=== PATIENT | female | born 1975 | race Caucasian/White ===

== ENCOUNTER 2021-10-10 07:43 | Outpatient (CLI) | payer SELFPAY ==
--- NOTE | 2021-10-10 07:51 | MM_ITS ---
WS: [id number] BILATERAL SCREENING TOMOSYNTHESIS DIGITAL MAMMOGRAM WITH CAD HISTORY: SCREENING COMPARISON: 10/13/2017 and 07/30/2013 Bilateral CC and MLO views submitted. Computer aided detection analyzed. Breast composition: The breasts are extremely dense, which lowers the sensitivity of mammography. No suspicious masses, microcalcifications or architectural distortion. MM/[place] [id number] IMPRESSION: BI-RADS: 1-Negative FOLLOW UP: 1 Year Follow-up
== END 2021-10-10 07:44 | disposition home or self-care (01) ==
PROVIDERS: Visit Provider Nurse Practitioner Family
DX: Z12.31 Encounter for screening mammogram for malignant neoplasm of breast (principal)
CPT/HCPCS: 77063; 77067

== ENCOUNTER → 2022-04-23 15:59 | Outpatient (BNVA) | payer OTHER, SELFPAY | PROVIDERS: PCP Family Medicine; Visit Provider Family Medicine | DX: R53.83 Other fatigue (principal); N39.0 Urinary tract infection, site not specified | CPT/HCPCS: 80053; 81000; 82306; 84443; 85025 ==

== ENCOUNTER 2022-07-05 06:07 | Outpatient (CLI) | payer OTHER, SELFPAY ==
--- NOTE | 2022-07-05 | US_ITS ---
WS: [id number] RENAL ULTRASOUND HISTORY: CKD COMPARISON: None available. TECHNIQUE: 2-D and color Doppler imaging of the kidney submitted. Right kidney: 9.1 cm x 4.4 cm x 4.2 cm. Normal echogenicity with no hydronephrosis or mass. No cortical thinning. Left kidney: 9.3 cm x 4.4 cm x 4.3 cm. Normal echogenicity with no hydronephrosis or mass. No cortical thinning. Aorta: Normal. Urinary Bladder: Mild distention. US/US renal BI* [id number] IMPRESSION: Normal renal ultrasound.
[2022-07-05 07:20] LABS: Bilirubin Urine Neg (Negative); Blood Urine 3+ (Negative); Glucose Urine UA Norm (Normal); Ketones Urine Negative (Negative); Leukocyte Esterase Urine Negative (Negative); Nitrate Urine Negative (Negative); Protein Urine Neg (Negative); Specific Gravity, Urine 1.025 (1.005-1.030); Urine Appearance Clear (CLEAR); Urine Color Yellow (Yellow); Urobilinogen Urine Neg (Negative); pH Urine 5 (5-7)
[2022-07-05 07:28] LABS: Add Urine Culture? No; Mucus Urine 2+ /hpf; Squamous Epithelial Cell Urine 25-40 /hpf (0-5)
[2022-07-05 07:30] LABS: Albumin Level 4.2 g/dL (3.5-5.2); Blood Urea Nitrogen 12 mg/dL (6-20); Calcium 9.9 mg/dL (8.5-10.5); Carbon Dioxide 27 mmol/L (22-29); Chloride 103 mmol/L (98-107); Glomerular Filtration Rate 60.2 mL/min (90-130); Glucose 94 mg/dL (65-115); Phosphorus 3.8 mg/dL (2.5-4.5); Sodium 140 mmol/L (136-145)
[2022-07-05 07:31] LABS: Calcium 10.1 mg/dL (8.5-10.5)
[2022-07-05 07:37] LABS: Creatinine Urine, Random 199 mg/dL (28-217); Microalbum Creatinine Ratio Ur 5 mg/dL (0-20); Microalbumin Random Urine 1 ug/dL (0-20)
[2022-07-05 07:37] LABS: Parathyroid Hormone 47.5 pg/mL (15-65)
[2022-07-05 07:45] LABS: 25 Hydroxy Vitamin D 27 ng/mL (30-100)
== END 2022-07-05 06:08 | disposition home or self-care (01) ==
PROVIDERS: PCP Family Medicine; Visit Provider Internal Medicine Nephrology
DX: N18.2 Chronic kidney disease, stage 2 (mild) (principal)
CPT/HCPCS: 36415; 76770; 80069; 81001; 82044; 82306; 82310; 83970

== ENCOUNTER 2022-10-09 15:00 | Outpatient (CLI) | payer OTHER, SELFPAY ==
[2022-10-09 17:06] LABS: Calcium 9.8 mg/dL (8.5-10.5); Parathyroid Hormone 37.9 pg/mL (15-65)
[2022-10-09 17:07] LABS: Creatinine Urine, Random 144 mg/dL (28-217); Microalbum Creatinine Ratio Ur 7 mg/dL (0-20); Microalbumin Random Urine 1 ug/dL (0-20)
[2022-10-09 17:14] LABS: 25 Hydroxy Vitamin D 22 ng/mL (30-100); Albumin Level 4.4 g/dL (3.5-5.2); Blood Urea Nitrogen 13 mg/dL (6-20); Calcium 9.7 mg/dL (8.5-10.5); Carbon Dioxide 29 mmol/L (22-29); Chloride 102 mmol/L (98-107); Glomerular Filtration Rate 67.7 mL/min (90-130); Glucose 103 mg/dL (65-115); Phosphorus 3.7 mg/dL (2.5-4.5); Sodium 140 mmol/L (136-145)
[2022-10-09 17:40] LABS: Anion Gap 13.2 (5-19); Potassium 4.2 mmol/L (3.5-5.1)
== END 2022-10-09 15:01 | disposition home or self-care (01) ==
LOC: LAB 15:12
PROVIDERS: PCP Family Medicine; Visit Provider Internal Medicine Nephrology
DX: N18.2 Chronic kidney disease, stage 2 (mild) (principal)
CPT/HCPCS: 36415; 80069; 82044; 82306; 82310; 83970

== ENCOUNTER 2023-01-09 14:14 | Outpatient (CLI) | payer OTHER, SELFPAY ==
--- NOTE | 2023-01-09 15:01 | XR_ITS ---
WS: [email or web address] Chest 2 views, 01/09/2023 Clinical Data: persistent fever cough after abx tx Comparison: Two-view chest, 09/17/2007. Findings: No nodules, masses or effusions are seen. The heart is normal. The pulmonary vascularity is not increased. No pneumothorax is seen. On the PA film the right cardiac border is slightly obscured possibly from an opacity consisting of atelectasis and/or minimal pneumonia. There are cholecystecto my clips in the right upper quadrant. XR/XR chest 2V* [id number] Impression: Possible right middle lobe atelectasis and/or pneumonia and recommend repeat ch est x-ray in 2-3 days.
== END 2023-01-09 14:15 | disposition home or self-care (01) ==
PROVIDERS: PCP Family Medicine; Visit Provider Family Medicine
DX: R05.9 Cough, unspecified (principal); R50.9 Fever, unspecified
CPT/HCPCS: 71046; 80053; 85025

== ENCOUNTER 2023-03-20 12:16 | Outpatient (CLI) | payer OTHER, SELFPAY ==
--- NOTE | 2023-03-20 12:20 | XR_ITS ---
WS: [email or web address] Right shoulder, 3 views, 03/20/2023 Clinical Data: ac joint tenderness, rotator impingement Comparison: None. Findings: No fractures or dislocations are seen. The AC joint is normal. The adjacent right clavicle, right sca pula and ribs are normal. The soft tissues are unremarkable. Impression: Negative right shoulder.
== END 2023-03-20 12:17 | disposition home or self-care (01) ==
LOC: RAD 12:17
PROVIDERS: PCP Family Medicine; Visit Provider Family Medicine
DX: M25.511 Pain in right shoulder (principal)
CPT/HCPCS: 73030

== ENCOUNTER → 2023-05-15 13:56 | Outpatient (BNVA) | payer OTHER, SELFPAY | PROVIDERS: PCP Family Medicine; Visit Provider Family Medicine | DX: M25.579 Pain in unspecified ankle and joints of unspecified foot (principal); F32.A Depression, unspecified | CPT/HCPCS: 84550 ==

== ENCOUNTER → 2023-05-21 12:08 | Outpatient (BNVA) | payer OTHER, SELFPAY | PROVIDERS: PCP Family Medicine; Visit Provider Family Medicine | DX: R42 Dizziness and giddiness (principal) | CPT/HCPCS: 80048; 84443; 85025 ==

== ENCOUNTER 2023-07-16 06:55 | Outpatient (CLI) | payer OTHER, SELFPAY ==
--- NOTE | 2023-07-16 07:15 | USCV_ITS ---
Rebecca Jimenez Age: 47 Gender: F : 1975 Exam Date: 07/16/2023 07:09 Ordering Phys: Lindsey Flaherty MD Technologist: Kevin Lopez [place] [facility] [place]: mvp mr BP: 130 / 78 HR: 89 Rhythm: Sinus Technical Quality: Adequate MEASUREMENTS (Male / Female) Normal Values 2D ECHO LV Diastolic Diameter PLAX 3.8 cm 4.2 - 5.9 / 3.9 - 5.3 cm LV Systolic Diameter PLAX 2.3 cm IVS Diastolic Thickness 1.2 cm 0.6 - 1.0 / 0.6 - 0.9 cm IVS Systolic Thickness 1.6 cm LVPW Diastolic Thickness 0.9 cm 0.6 - 1.0 / 0.6 - 0.9 cm LVPW Systolic Thickness 1.3 cm LVOT Diameter 2.1 cm LV Ejection Fraction 2D Teich 70.0 % LV Ejection Fraction MOD 2C 65.8 % LV Ejection Fraction 2C AL 64.5 % LA Diameter 2.8 cm IVC Diameter 1.0 cm M-MODE Aortic Annulus Diameter 2.6 cm LA Ao Ratio MM 1.1 MV E Point Septal Separation 0.7 cm DOPPLER AV Peak Velocity 127.0 cm/s LVOT Peak Velocity 72.7 cm/s AV Area Cont Eq vti 1.9 cm squared AV Area Cont Eq pk 1.9 cm squared MV Peak Velocity 11.0 cm/s MV Area PHT 4.2 cm squared Mitral E to A Ratio 1.3 MV E' Velocity 105.0 cm/s Mitral E to LV E' Septal Ratio 9.3 TR Peak Velocity 163.0 cm/s TR Peak Gradient 10.6 mmHg TV Peak E Velocity 86.3 cm/s Right Atrial Pressure 3.0 mmHg Pulmonary Artery Systolic Pressu 13.6 mmHg FINDINGS Left Ventricle Left ventricle is normal in size. LV systolic function is normal with EF 55 to 60%. No regional wall motion abnormalities are seen. Diastolic function is normal. Right Ventricle Normal in size and function Right Atrium Normal in size Left Atrium Normal in size Mitral Valve Mitral valve prolapse is noted. Mild mitral regurgitation. Aortic Valve Structurally normal aortic valve. No significant stenosis or regurgitation. Tricuspid Valve Mild tricupsid regurgitation. Insufficient TR jet to calculate RVSP Pulmonic Valve Not well-visualized. Pericardium Normal Aorta Normal in size IVC Appears to be normal CONCLUSIONS LV systolic function is normal with EF of 55 to 60%. Diastolic function is normal. The mitral valve prolapse is seen. Mild mitral regurgitation Mild tricuspid regurgitation Compared to prior echocardiogram from 2012, no significant changes are seen Sameer Wilkerson MD (Electronically Signed) Final Date: 30 July 2023 11:18 S
== END 2023-07-16 06:56 | disposition home or self-care (01) ==
LOC: RAD 06:56
PROVIDERS: PCP Family Medicine; Visit Provider Family Medicine
DX: I08.1 Rheumatic disorders of both mitral and tricuspid valves (principal)
CPT/HCPCS: 93306

== ENCOUNTER → 2024-04-06 13:54 | Outpatient (BNVA) | payer OTHER, SELFPAY | PROVIDERS: PCP Family Medicine; Visit Provider Family Medicine | DX: R30.0 Dysuria (principal); H66.91 Otitis media, unspecified, right ear; R42 Dizziness and giddiness | CPT/HCPCS: 81000; 87086 ==

== ENCOUNTER → 2024-04-08 09:08 | Outpatient (BNVA) | payer OTHER, SELFPAY | PROVIDERS: PCP Family Medicine; Visit Provider Family Medicine | DX: R30.0 Dysuria (principal) | CPT/HCPCS: 81000 ==

== ENCOUNTER → 2024-04-12 15:48 | Outpatient (BNVA) | payer OTHER, SELFPAY | PROVIDERS: PCP Family Medicine; Visit Provider Podiatrist Foot & Ankle Surgery | DX: M21.612 Bunion of left foot (principal) | CPT/HCPCS: 73630 ==

== ENCOUNTER → 2024-09-27 16:09 | Outpatient (BNVA) | payer OTHER, SELFPAY | PROVIDERS: PCP Family Medicine; Visit Provider Anesthesiology Pain Medicine | DX: M54.2 Cervicalgia (principal); M54.81 Occipital neuralgia | CPT/HCPCS: 72040 ==

== ENCOUNTER 2024-10-01 14:53 | Outpatient (CLI) | payer OTHER, SELFPAY ==
--- NOTE | 2024-10-01 15:15 | MR_ITS ---
WS: [email or web address] MRI CERVICAL SPINE NONCONTRAST HISTORY: M54.12 - Radiculopathy, cervical region COMPARISON: None available. Technique: Multiplanar, multisequence noncontrast imaging of the cervical spine. Very mild straightening of the normal cervical lordosis. Disc spaces are mildly narrowed and desiccated. Signal within the cervical cord is normal. Visualized posterior fossa is unremarkable. Craniocervical junction, C1 and C2 relationship, odontoid process and soft tissues are normal. C2-C3: Mild osteophytic ridging, slightly asymmetric and more prominent in the proximal LEFT foramen. No high-grade stenosis. C3-C4: Normal. C4-C5: Normal. C5-C6: Mild osteophytic ridging and facet arthritis. Very mild effacement of CSF but no stenosis. C6-C7: Moderate size central disc protrusion effacing CSF. Very mild central and RIGHT foraminal narrowing. No high-grade stenosis. C7-T1: Normal. Paraspinal soft tissue are normal. MR/MR cervical spin wo con* [id number] IMPRESSION: 1. No high-grade central or foraminal stenosis. 2. C6-7: Moderate size central disc protrusion effaces CSF with mild central a nd RIGHT foraminal narrowing. 3. C5-6: Minimal effacement of CSF.
== END 2024-10-01 14:54 | disposition home or self-care (01) ==
PROVIDERS: PCP Family Medicine; Visit Provider Anesthesiology Pain Medicine
DX: M54.12 Radiculopathy, cervical region (principal); M50.223 Other cervical disc displacement at C6-C7 level; M25.78 Osteophyte, vertebrae; M47.892 Other spondylosis, cervical region; M48.02 Spinal stenosis, cervical region
CPT/HCPCS: 72141

== ENCOUNTER 2024-10-08 13:01 | Outpatient (CLI) | payer OTHER, SELFPAY ==
--- NOTE | 2024-10-08 13:05 | XR_ITS ---
WS: [email or web address] Right knee, 3 views, 10/08/2024 Clinical Data: right knee pain and swelling Comparison: None. Findings: No fractures or dislocations are seen. The joint spaces are normal. The patella is intact. The soft tissues are unremarkable. XR/XR knee RT 3V* [id number] Impression: Negative right knee.
== END 2024-10-08 13:02 | disposition home or self-care (01) ==
LOC: RAD 13:03
PROVIDERS: PCP Family Medicine; Visit Provider Family Medicine
DX: M25.561 Pain in right knee (principal); M25.461 Effusion, right knee
CPT/HCPCS: 73562

== ENCOUNTER 2024-10-14 12:36 | Outpatient (CLI) | payer OTHER, SELFPAY ==
--- NOTE | 2024-10-14 13:00 | MR_ITS ---
WS: [email or web address] MRI RIGHT KNEE HISTORY: medial knee pain, concern for meniscus tear COMPARISON: Radiograph 10/08/2024 Anterior cruciate ligament: Intact. Posterior cruciate ligament: Intact. Medial collateral ligament: Mild displacement of the MCL from the joint by extruded meniscus. There is also increased T2 signal and thickening of the MCL just below the joint line. Posterior lateral corner structures: Intact. Medial menisci: Complex tear posterior horn extends to the inferior and superior articular surfaces and also the posterior surface. Anterior horn is intact. Lateral meniscus: Intact. Normal signal, size and shape. Extensor mechanism: Distal quadriceps tendon and patellar tendons are intact. Fluid and soft tissue: Small suprapatellar joint effusion. Small Patterson's cyst. Osseous and articular structures: Patellofemoral compartment: Normal. Medial compartment: Mild narrowing of the medial compartment. There is a small amount of marrow edema in the tibial plateau Lateral compartment: Normal. MR/MR knee RT wo con* [id number] IMPRESSION: 1. Complex tear involving the posterior horn of the medial meniscus. 2. Small amount of marrow edema in the medial tibial plateau. 3. Mild MCL sprain. 4. ACL is intact.
== END 2024-10-14 12:37 | disposition home or self-care (01) ==
LOC: RAD 12:37
PROVIDERS: PCP Family Medicine; Visit Provider Family Medicine
DX: S83.231A Complex tear of medial meniscus, current injury, right knee, initial encounter (principal); S83.411A Sprain of medial collateral ligament of right knee, initial encounter; X58.XXXA Exposure to other specified factors, initial encounter; M25.461 Effusion, right knee; R93.6 Abnormal findings on diagnostic imaging of limbs; M71.21 Synovial cyst of popliteal space [Baker], right knee
CPT/HCPCS: 73721

== ENCOUNTER 2024-11-09 12:18 | Outpatient (CLI) | payer OTHER, SELFPAY | END 2024-11-09 12:19 | disposition home or self-care (01) | LOC: SPT 12:18 | PROVIDERS: PCP Family Medicine; Visit Provider Student in an Organized Health Care Education/Training Program | DX: Z46.89 Encounter for fitting and adjustment of other specified devices (principal); S83.241D Other tear of medial meniscus, current injury, right knee, subsequent encounter; X58.XXXD Exposure to other specified factors, subsequent encounter; M25.461 Effusion, right knee | CPT/HCPCS: L1812 ==

== ENCOUNTER 2024-12-30 08:22 | Day surgery (SDC) | payer OTHER, SELFPAY ==
[2024-12-30] VITALS (9 sets, daily range): BP systolic 100–129; BP diastolic 60–83; PULSE 80–93; RESP 12–18; TEMP 36.2–36.9; O2SAT 94–97; BMI 24.8
[2024-12-30] MEDS: acetaminophen 1,000 MG/100 ML PIGGYBACK 400 MG IV (09:28)
--- NOTE | 2024-12-30 10:11 | P.ANESASSM_ITS ---
Pre-Anesthetic Assessment Height/Weight: Height 1.57 m Weight 61.689 kg Temp Pulse Resp BP Pulse Ox O2 Del Method 98.5 F 84 18 124/83 97 Room Air 12/30/24 08:56 12/30/24 08:56 12/30/24 08:56 12/30/24 09:15 12/30/24 08:56 12/30/24 08:56 Operation Date: 12/30/24 11:05 Proposed Procedures p RIGHT Knee Diagnostic and Surgical Arthroscopy(Right) - Morgan Stanford DO s Partial Medial Meniscectomy vs Repair(Right) - Morgan Stanford DO Familial anesthetic complications: None Was Beta Leoncio taken within 24 hours: N/A Was Clonidine taken within 24 hours: N/A Last intake: Intake Last Liquid Date 12/29/24 Last Liquid Time 23:20 Last Solid Date 12/29/24 Last Solid Time 17:30 Social No alcohol and No tobacco Exam alert, oriented x 3, clear to auscultation bilaterally and regular rate & rhythm Airway Mallampati: Class I Dentition: full CV/HEM MVP followed by cardiology Tachycardia - not placed on medications d/t tendency towards low bp per patient; states her father and uncle both in their 40s from tachycardia and that her father should've been on a heart transplant list. She has followed cardiology and they have not diagnosed her with any structural or other cardiac heart defects other than the MVP which has been stable on echo for years Anesthetic Plan ASA status: 2 Anesthesia: General and Regional (specify below) Risk of > 500 ml blood loss (7ml/kg in children): No Other Pertinent Information URI (? covid) last week, took course of steroids - states back at baseline, minimal congestion, lungs CTA Medications/Allergies Home Medications ?Medication ?Instructions ?Recorded ?Confirmed ?Last Taken ?Type ibuprofen 200 mg tablet (Advil) 200 mg PO Q6H PRN Pain 10/08/24 12/29/24 12/29/24 History Hinged Knee Brace #1 ea 11/09/24 11/09/24 Unkn own Rx Allergies Allergy/AdvReac Type Severity Reaction Status Date / Time No Known Allergies Allergy Verified 12/24/24 08:13 Current Medications Generic Name Dose Route Start Last Admin Trade Name Freq PRN Reason Stop Dose Admin Sodium Chloride 1,000 mls @ 30 mls/hr 12/30/24 08:45 12/30/24 09:36 Sodium Chloride 0.9% IV 12/31/24 08:44 30 mls/hr .Q24H KIM Administration PFSH Anesthesia Medical History Depression Surgical History (Updated 12/30/24 @ 09:46 by MAURILIO Saavedra) History of lumpectomy of right breast benign History of cholecystectomy History of hysterectomy for benign disease endometriosis Family History Mother Chronic kidney disease (CKD) Cancer breast Diabetes Father , ventricular tachycardia @ 38 No problems noted. Grandmother Dementia Denies family history of CAD (coronary artery disease) Stroke Social History Smoking and tobacco/nicotine status: current some day tobacco/nicotine user cigarettes Packs smoked per day: 0.5 Years cigarettes smoked: 10 Quit status (tobacco/nicotine): has tried quititng Alcohol intake: never Substance/Drug Use: never Lives independently: Yes Household members: spouse Marital status: Number of children: 1 Current occupational status: employed Current occupation: billing department at [employer] Data Anesthesia Cardiac Studies: Echocardiogram 07/16/23 Anesthesia Procedures Nerve Block Nerve Block 1: Main Anesthesia: general anesthesia Time Out Performed: Yes Consent: requested by attending/covering physician, from patient, from other, risks and benefits reviewed and patient agrees to proceed Nerve block location: adductor canal (R) Anesthesia monitors applied: pulse oximetry, EKG, BP cuff and oxygen Nerve block position: supine Anesthetic Used: bupivacaine 0.5% (20 ml) and with decadron (4 mg) Ultrasound used to: recognize landmarks and visualize and ID femerol nerve Nerve Stimulator Used?: No Interscalene/Femoral BLK: 4 stimuplex 21 g needle used for position and inplane approach, visualize local anesthetic spread and no vascular puncture identified Injection: neg aspiration of heme Patient Tolerated Procedure: well Complications: none
--- NOTE | 2024-12-30 10:23 | P.HP_ITS ---
Same Day Surgery H&P Indication for Procedure/HPI DATE OF PROCEDURE: December 30, 2024 CHIEF COMPLAINT/INDICATIONFOR SURGICAL PROCEDURE: Right knee medial meniscus tear PREOP DIAGNOSIS: Right knee medial meniscus tear PLANNED PROCEDURE: Operation Date: 12/30/24 11:05 Proposed Procedures p RIGHT Knee Diagnostic and Surgical Arthroscopy(Right) - Morgan Stanford DO s Partial Medial Meniscectomy vs Repair(Right) - Morgan Stanford DO Medications/Allergies* Home Medications ?Medication ?Instructions ?Recorded ?Confirmed ?Type ibuprofen 200 mg tablet (Advil) 200 mg PO Q6H PRN Pain 10/08/24 12/29/24 History Allergies/Adverse Reactions Allergy/AdvReac Type Severity Reaction Status Date / Time No Known Allergies Allergy Verified 12/24/24 08:13 Current Medications: Generic Name Dose Route Start Last Admin Trade Name Freq PRN Reason Stop Dose Admin Sodium Chloride 1,000 mls @ 30 mls/hr 12/30/24 08:45 12/30/24 09:36 Sodium Chloride 0.9% IV 12/31/24 08:44 30 mls/hr .Q24H KIM Administration Pertinent History/Comorbid Conditions* Medical History (Updated 10/15/24 @ 08:37 by Lindsey Flaherty MD) Depression Surgical History (Updated 12/30/24 @ 09:46 by MAURILIO Saavedra) History of lumpectomy of right breast benign History of cholecystectomy History of hysterectomy for benign disease endometriosis Family History (Updated 04/23/22 @ 15:38 by Lindsey Flaherty MD) Father, ventricular tachycardia @ 38 Diabetes Mother Dementia Grandmother Chronic kidney disease (CKD) Mother Cancer Mother breast Denies family history of CAD (coronary artery disease) Stroke Social History Smoking and tobacco/nicotine status: current some day tobacco/nicotine user cigarettes Packs smoked per day: 0.5 Years cigarettes smoked: 10 Quit status (tobacco/nicotine): has tried quititng Alcohol intake: never Substance/Drug Use: never Lives independently: Yes Household members: spouse Marital status: Number of children: 1 Current occupational status: employed Current occupation: billing department at [employer] Pertinent Exam Findings alert, oriented x 3, operative site marked and procedure specific exam findings Please refer to detail orthopedic examination on 11/09/2024 listed below: right knee exam: There are no gross deformities of the hips or ankles. The range of motion of both hips and ankles are normal and no tenderness to palpation. Mild effusion right knee, There is discrete tenderness to palpation over the medial co mpartment of the right knee. There is pain that is reproduced with McMurrays test, but no palpable click. There is no tenderness with patella mobilization or over the lateral compartment. There is a negative patella grind maneuver. There is a negative lachmans test and both knees are stable to varus and valgus stress testing. There is a negative anterior drawer. There is no significant varus or valgus malalignment. Recommendations Risks and benefits of procedure reviewed and Patient/family agree to proceed Surgery/Procedure today Other Plans: Plan to proceed to the OR today for right knee diagnostic and surgical arthroscopy partial medial meniscectomy versus repair. Patient understands the ins and outs procedure the risk benefits complication alternatives of surgery and through shared decision-making patient elects proceed with surgical invention. All questions answered at this time. Coding Level of Care Code Acute Code for Maryam Fwreed
[2024-12-30] MEDS: ceFAZolin 2,000 MG in sodium chloride 0.9% (plus) 50 ML 100 MG IV (10:27)
[2024-12-30] MEDS: lidocaine-epi 2% PF 1:200,000 20 mL SDV 7 ML XX (11:12)
--- NOTE | 2024-12-30 11:26 | P.BOP_ITS ---
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 She had grade I chondromalacia laterally. Tolerated procedure well without issues or complications. Estimated blood loss: 10 mL Specimen(s) removed: None Post-operative diagnosis: Right knee medial meniscus tear and extensive synovitis
--- NOTE | 2024-12-30 11:28 | P.OP_ITS ---
Operative Report Date of procedure: December 30, 2024 Surgeon: Morgan Stanford DO Delivery Room Supervisor: Jason Stanford PA-C: PA was necessary for assistance in this case with leg positioning, assistance with arthroscopic instrumentation, assistance wound closure and dressing application. Procedure: Preoperative diagnosis: Right knee medial meniscus tear Post-op diagnosis: Right knee medial meniscus tear and extensive synovitis Procedure done: Right knee diagnostic and surgical arthroscopy with partial medial meniscectomy Right knee diagnostic and surgical arthroscopy with extensive synovectomy (medial and lateral and patellofemoral compartments) Surgeon: Morgan Stanford DO Estimated blood loss: 5mL Tourniquet: No tourniquet was used IV fluids: See anesthesia record Complications: None Findings: See operative report narrative Condition: stable Disposition: same day Brief History: Patient is a 49-year-old female with right?knee?pain.? Patient has failed conservative treatment who has been worked up for right??knee?pain in the outpatient setting. MRI findings consistent with tear of the medial meniscus. talked in the office about treatment options patient would like to proceed with a right?knee?diagnostic and surgical arthroscopy with partial medial meniscectomy versus repair. Patient understand the ins and outs of the procedure the risk benefits complication alternatives to treatment options.? Understanding risk of surgery they agree to proceed with surgical intervention.? Patient understand this may not provide patient with complete symptomatic relief of? pain as patient does have some mild underlying arthritis.? Understanding this and patient agree to proceed with surgical intervention all questions answered. Consent obtained in the preoperative holding area. Procedure: Patient seen and evaluated in the preoperative holding area.? Consent was reviewed and signed with patient.? Correct extremity was then marked.? Patient seen evaluated Anesthesia Department once cleared for surgery patient was taken back to the operative suite.? Patient was transported onto the OR table in supine position.? All bony prominences well-padded patient was appropriate secured to the bed.? Once appropriately anesthetized a nonsterile tourniquet was applied to the right thigh.? The right lower extremity was then prepped and draped in standard orthopedic fashion.? Final timeout performed.? Patient received appropriate preoperative antibiotics. Patient received local anesthetic of lidocaine with epinephrine into the joint as well as around the portal sites.? No tourniquet was inflated A standard 2 portal vertical incision diagnostic and surgical arthroscopy of the right?knee?was performed in standard fashion.? Small stab incision made in the inferolateral portal introduced trocar and arthroscope into the suprapatellar pouch.? Suprapatellar pouch was subsequently visualized and found to have significant synovitis but no loose bodies.? Patient had noticeable significant inflamed infrapatellar fat pad and thickening hypertrophic within the patellofemoral compartment.? ?The medial gutter was free of loose bodies I then introduced the arthroscope into the medial compartment.? Within the medial compartment I then established my inferior medial working portal utilizing spinal needle outside in technique.? Once established I then visualized our articular cartilage of the medial compartment with a valgus stress.? Patient was found to have grade 2 chondromalacia throughout the medial compartment.? Next I inspected the meniscus.? With an arthroscopic probe was utilized to visual? all aspects of the meniscus.? Meniscal root was found to be intact.? Meniscus was found to be torn at the body to posterior horn junction patient was found to have a complex tear with multiple oblique horizontal and longitudinal tear components as result this was unable to be repaired and plan was for partial medial meniscectomy. I then subsequently introduced a basket forceps as well as arthroscopic shaver to perform a partial medial meniscectomy to stable meniscal tissue and then uti lized a thermal wand to anneal the edges.? Next, I then performed a synovectomy of the medial compartment. This completed medial compartment work. Next a introduced the arthroscope to the intercondylar notch.? PCL and ACL were intact. patient had significant thickening of the infrapatellar fat pad spanning into the medial and lateral compartments.? I then performed an extensive synovectomy with the arthroscopic shaver of the patellofemoral medial and lateral compartments as well as the intercondylar notch. Next I introduced the arthroscope into the lateral compartment the lateral compartment was found to have grade 1 chondromalacia.? Lateral meniscus was found to be intact.? The root was intact.? Given the grade II chondromalacia there is no unstable cartilage pieces to perform chondroplasty.? This completed my work of the lateral compartment and then performed a synovectomy of the lateral compartment.? Next of the arthroscope was placed into the lateral gutter and this was free of loose bodies.? Finally I reintroduced the arthroscope into the patellofemoral compartment.? The patellofemoral was found to have grade 2 chondromalacia of the patellofemoral compartment.? At this point I utilized arthroscopic shaver as well as thermal wand to perform extensive synovectomy of the patellofemoral compartment. This completed my work of the patellofemoral space.? I then switch my portal sites to the medial working portal.? Completed the rest of my synovectomy and the rest of my examination arthroscopy was normal. All fluid was suctioned from the joint.? ?All instruments were withdrawn.? Portal sites were closed with interrupted nylon suture.? portal sites were then covered with with Xeroform 4 x 4's ABD Curlex and Luis wrap.? Patient was then subsequently awakened from anesthesia and taken to PACU in stable condition. Disposition: Patient taken to PACU in stable condition recovering well.? Will receive appropriate discharge structure as well as pain medication po stoperatively as well as? DVT prophylaxis.we will have patient follow-up with us in the office in 2 weeks.? We will weightbearing as tolerated to the right lower extremity.? Patient understands and agrees with current plan.? All questions answered.
--- NOTE | 2024-12-30 11:42 | PM.PACU ---
PACU note Narrative: Patient is a 49-year-old female who just underwent a right knee arthroscopy. Pt transferred to PACU in stable condition. Dressing is dry. pt is awake and alert. pt can wiggle toes and plantarflex and dorsiflex foot. pt able to perform straight leg raise, Femoral nerve intact. Distal pulses are palpable toes are warm and well-perfused. Cap refill is normal and under 2 seconds. Sensation to foot is intact. Pain is controlled. Exam: awake Disposition: discharged
== END 2024-12-30 13:50 | disposition home or self-care (01) ==
PROVIDERS: PCP Family Medicine; Visit Provider Student in an Organized Health Care Education/Training Program
PROC: (CPT 29870; principal; 2024-12-30 10:55)
PROC: (CPT 29876; 2024-12-30 10:55)
DX: S83.241A Other tear of medial meniscus, current injury, right knee, initial encounter (principal); X58.XXXA Exposure to other specified factors, initial encounter; M65.861 Other synovitis and tenosynovitis, right lower leg; R00.0 Tachycardia, unspecified; F32.A Depression, unspecified; F17.210 Nicotine dependence, cigarettes, uncomplicated
CPT/HCPCS: 29876; 29881; J0131; J0690; J1100; J1885; J2250; J2405; J2704; J2795; J3010; J7030; J9999

== ENCOUNTER 2025-02-04 08:15 | Outpatient (RCR) | payer OTHER, SELFPAY | END 2025-02-06 23:59 | disposition home or self-care (01) | LOC: SPT 08:15 | PROVIDERS: PCP Family Medicine; Visit Provider Physician Assistant | DX: Z98.890 Other specified postprocedural states (principal) | CPT/HCPCS: 97110; 97161 ==

== ENCOUNTER 2025-02-07 05:00 | Outpatient (RCR) | payer OTHER, SELFPAY | END 2025-03-08 23:59 | disposition home or self-care (01) | LOC: SPT 05:00 | PROVIDERS: PCP Family Medicine; Visit Provider Physician Assistant | DX: Z47.89 Encounter for other orthopedic aftercare (principal) | CPT/HCPCS: 97110; 97530 ==

== ENCOUNTER 2025-04-08 14:17 | Outpatient (CLI) | payer OTHER, SELFPAY ==
--- NOTE | 2025-04-08 14:20 | MM_ITS ---
WS: [email or web address] BILATERAL 3D TOMOSYNTHESIS DIGITAL SCREENING MAMMOGRAPHY WITH CAD CLINICAL INFORMATION: SCREENING HISTORY: Screening mammogram. No current complaints. COMPARISON: 2021 TECHNIQUE: Bilateral CC and MLO views. FINDINGS: The breasts are composed of heterogeneous fibroglandular density tissue, which can limit the detection of small underlying mass lesions. No suspicious mass, asymmetry, calcifications, or architectural distortion. No evidence of malignancy. MM/MM scr tomosynthesis [id number] IMPRESSION: DENSITY: The breasts are heterogeneously dense, which may obscure small masses. BI-RADS: 1 - Negative FOLLOW UP: 1 Year Follow-up Recommend return to annual screening mammography.
== END 2025-04-08 14:18 | disposition home or self-care (01) ==
LOC: RAD 14:17
PROVIDERS: PCP Family Medicine; Visit Provider Family Medicine
DX: Z12.31 Encounter for screening mammogram for malignant neoplasm of breast (principal); R92.333 Mammographic heterogeneous density, bilateral breasts; R92.323 Mammographic fibroglandular density, bilateral breasts
CPT/HCPCS: 77063; 77067

== ENCOUNTER 2025-04-09 05:00 | Outpatient (RCR) | payer OTHER, SELFPAY | END 2025-04-12 08:52 | disposition home or self-care (01) | LOC: SPT 05:00 | PROVIDERS: PCP Family Medicine; Visit Provider Physician Assistant | DX: Z98.890 Other specified postprocedural states (principal) | CPT/HCPCS: 97110 ==